=== PATIENT | male | born 2000 | race Caucasian/White ===

== ENCOUNTER 2021-02-27 22:08 | Emergency (ER) | payer BC ==
[2021-02-27] MEDS ORDERED: Diphtheria,Pertussis(Acell),Tetanus Vaccine 0.5 ML Syringe IM ONE (22:13)
[2021-02-27] MEDS ORDERED: Bacitracin/Neomycin/Polymyxin B Oint 0.9 GM U/D Packet TOP ONE (22:35)
--- NOTE | 2021-02-27 22:35 | EDM.PDOC ---
ED HPI GENERAL MEDICAL PROBLEM - General Chief Complaint: Laceration Stated Complaint: laceration Time Seen by Provider: 02/27/21 22:20 Source of Information: Reports: Patient History Limitations: Reports: No Limitations - History of Present Illness INITIAL COMMENTS - FREE TEXT/NARRATIVE: Harry is a pleasant 20 year old male that presents to the ED with a laceration to his left thumb. States that he cut his finger while gutting out and skinning his deer prior to coming to the ED. Reports that he was able to clean it and controlled the bleeding with paper towel and tape. Denies any other injury. 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 [No Known Home Meds] 02/27/21 [History] Past Medical History - Past Health History Medical/Surgical History: Denies Medical/Surgical History Social & Family History - Tobacco Use Tobacco Use Status *Q: Never Tobacco User - Caffeine Use Caffeine Use: Reports: None - Recreational Drug Use Recreational Drug Use: No ED ROS GENERAL - Review of Systems Review Of Systems: See Below Constitutional: Reports: No Symptoms HEENT: Reports: No Symptoms Respiratory: Reports: No Symptoms Cardiovascular: Reports: No Symptoms Skin: Reports: Wound ED EXAM, SKIN/RASH Exam: See Below Exam Limited By: No Limitations General Appearance: Alert, WD/WN, No Apparent Distress Extremities: Normal Range of Motion, Normal Capillary Refill Neurological: Alert, Oriented Psychiatric: Normal Affect, Normal Mood Skin: Wound/Incision Location, Skin: Upper Extremity, Left ED SKIN PROCEDURES - Laceration/Wound Repair Left Distal Digit - 1st (Thumb) Appearance: Superficial Distal NVT: No Tendon Injury Anesthetic Type: Local Local Anesthesia - Lidocaine (Xylocaine): 1% Plain Local Anesthetic Volume: 3cc Skin Prep: Providone-Iodine (Betadine) Exploration/Debridement/Repair: Wound Explored, In a Bloodless Field, No Foreign Material Found Closed with: Sutures Lac/Wound length In cm: 2 Suture Size: 4-0 # of Sutures: 3 Suture Type: Nylon, Interrupted, Simple Sterile Dressing Applied: Provider Tetanus Status Addressed: Yes Complications: No Course - Vital Signs Last Recorded V/S: Last Vital Signs Temp 98.6 F 02/27/21 22:10 Pulse 68 02/27/21 22:10 Resp 18 02/27/21 22:10 BP 133/81 02/27/21 22:10 Pulse Ox 96 02/27/21 22:10 - Orders/Labs/Meds Orders: Active Orders 24 hr Category Date Time Status Vaccine to be Administered/Admin Charge [RC] ASDIRECTED Care 02/27/21 22:13 Active Meds: Medications Discontinued Medications Generic Name Dose Route Start Last Admin Trade Name Freq PRN Reason Stop Dose Admin Diphtheria/Tetanus/Acell Pertussis 0.5 ml 02/27/21 22:13 02/27/21 22:17 Diphtheria,Pertussis(Acell),Tetanus Vaccine 0.5 Ml Syringe IM 02/27/21 22:14 0.5 ml .ONCE ONE Administration Lidocaine HCl 5 ml 02/27/21 22:13 02/27/21 22:19 Lidocaine 1% 5 Ml Sdv INJECT 02/27/21 22:14 5 ml ONETIME ONE Administration Neomycin/Polymyxin/Bacitracin 1 each 02/27/21 22:35 02/27/21 22:39 Bacitracin/Neomycin/Polymyxin B Oint 0.9 Gm U/D Packet TOP 02/27/21 22:36 1 each ONETIME ONE Administration Departure - Departure Time of Disposition: 22:44 Disposition: Home, Self-Care 01 Condition: Good Clinical Impression: Laceration of thumb without complication - Discharge Information *PRESCRIPTION DRUG MONITORING PROGRAM REVIEWED*: No *COPY OF PRESCRIPTION DRUG MONITORING REPORT IN PATIENT TREVON: No Instructions: Laceration Care, Adult Forms: ED Department Discharge Additional Instructions: 1. Keep wound clean and dry. 2. Redress the wound in 24 hours. 3. May wash the suture site gently with soap and water. 4. Do not soak the wound in water. 5. Follow-up in clin[facility] for suture removal in 7-10 days 6. Watch for signs of infection that include redness that streaks down the extremity, foul smelling drainage, fever, etc. 7. Call or return with any questions or concerns. Sepsis Event Note (ED) - Evaluation Sepsis Screening Result: No Definite Risk - Focused Exam Vital Signs: Vital Signs Temp Pulse Resp BP Pulse Ox 02/27/21 22:10 98.6 F 68 18 133/81 96 - My Orders Last 24 Hours: My Active Orders 02/27/21 22:13 Vaccine to be Administered/Admin Charge [RC] ASDIRECTED - Assessment/Plan Last 24 Hours: My Active Orders 02/27/21 22:13 Vaccine to be Administered/Admin Charge [RC] ASDIRECTED
== END 2021-02-27 23:00 | disposition home or self-care (01) ==
LOC: CC.ED 22:08
DX: S61.012A Laceration without foreign body of left thumb without damage to nail, initial encounter (principal); Z23 Encounter for immunization; W26.8XXA Contact with other sharp object(s), not elsewhere classified, initial encounter
CPT/HCPCS: 12001; 90471; 90715; 99282-25